=== PATIENT | female | born 1965 | race Caucasian/White ===

== ENCOUNTER 2018-05-15 09:54 | Emergency (ER) | payer OTHER ==
[~2018-05-15] VITALS: Ht 170.2 cm; Wt 70.3 kg
[2018-05-15 10:16] LABS: ABSOLUTE BASOPHILS 0.1 thou/uL (0.0-0.2); ABSOLUTE EOSINOPHILS 0.1 thou/uL (0.0-0.7); ABSOLUTE LYMPHOCYTES 1.9 thou/uL (0.8-5.3); ABSOLUTE MONOCYTES 0.5 thou/uL (0.0-1.2); ABSOLUTE NEUTROPHILS 3.5 thou/uL (1.6-8.1); BASOPHILS 0.9 %; HEMATOCRIT 40.2 % (37.0-47.0); MCH 27.2 pg (26.0-34.0); MCHC 32.2 g/dL (28.0-37.0); MCV 84.3 fL (80.0-100.0); MONOCYTES 8.2 %; MPV 8.5 fl. (7.2-11.1); NUCLEATED RBCS 0 /100WBC; PLATELET COUNT* 247 thou/uL (150-400); POLYS 58.9 %; RBC 4.77 mil/uL (4.20-5.00); RDW-CV 13.7 % (10.5-14.5)
[2018-05-15 10:25] LABS: ANION GAP 6 mmol/L (7-16); BUN 16 mg/dL (7-18); CALCIUM 8.8 mg/dL (8.5-10.1); CHLORIDE 105 mmol/L (98-107); CO2 29 mmol/L (21-32); CREATININE 0.8 mg/dL (0.6-1.3); GLUCOSE 89 mg/dL (70-99); POTASSIUM 3.7 mmol/L (3.5-5.1); SODIUM 140 mmol/L (136-145)
[2018-05-15 10:28] LABS: APTT 27.8 Seconds (25.0-31.3); PROTIME 10.7 Seconds (9.20-11.50)
[2018-05-15 10:44] LABS: ALBUMIN 3.5 g/dL (3.4-5.0); ALKALINE PHOSPHATASE 87 U/L (46-116); CK-MB MASS 1.4 ng/mL (<0.5-3.6); LIPASE 106 U/L (73-393); NT-PRO BRAIN NAT PEPTIDE 91 pg/mL (<300); SGOT 21 U/L (15-37); SGPT 38 U/L (30-65); TOTAL BILIRUBIN 0.2 mg/dL (<0.1-1.0); TOTAL PROTEIN 7.3 g/dL (6.4-8.2); TROPONIN-I LEVEL <0.06 ng/mL (<0.06)
[2018-05-15 10:55] VITALS: BP 130/66
--- NOTE | 2018-05-16 12:32 | EKG ---
[place] [address] ELECTROCARDIOGRAM REPORT Name: GREGORY MENESES Room: [facility]#: [id number] Admission: 05/15/18 Attend Phys: Discharge: 05/15/18 Date of : 69 Report #: [id number] THIS REPORT FOR: //name// [facility] ED Test Date: 2018-05-15 Test Time: 09:58:11 Pat Name: GREGORY MENESES Department: Room: Gender: F [employer]: : 1965 Requested By: Figueroa Petty Order Number: [id number] MD: Anirudh Rodriguez Measurements Intervals [place] Rate: 59 P: 30 AR: 137 QRS: -30 QRSD: 86 T: 30 QT: 392 QTc: 389 Interpretive Statements Sinus rhythm Left axis deviation Low voltage, precordial leads Abnormal R-wave progression, early transition No previous ECG available for comparison Electronically Signed On 05-16-2018 12:31:58 [employer]FERENCE [employer] INSTRUCTION LIBRARIAN by Anirudh Rodriguez [email or web address] <ELECTRONICALLY SIGNED> By: Anirudh Rodriguez MD, [facility] 05/16/18 [id number] [phone] Anirudh Rodriguez MD, [facility] /EPI
== END 2018-05-15 10:55 | disposition home or self-care (01) ==
LOC: M.ERS 09:54
PROVIDERS: Family Medicine
DX: R07.89 Other chest pain (principal)

== ENCOUNTER → 2019-08-04 | Outpatient (CLI) | payer OTHER | LOC: M.RAD 10:09 | DX: Z12.31 Encounter for screening mammogram for malignant neoplasm of breast (principal); N63.10 Unspecified lump in the right breast, unspecified quadrant; N63.20 Unspecified lump in the left breast, unspecified quadrant ==

== ENCOUNTER → 2019-08-11 | Outpatient (CLI) | payer OTHER | LOC: M.ULTRA 10:12 | DX: N63.11 Unspecified lump in the right breast, upper outer quadrant (principal); N63.21 Unspecified lump in the left breast, upper outer quadrant ==

== ENCOUNTER → 2019-08-14 | Outpatient (CLI) | payer OTHER ==
--- NOTE | 2019-08-17 15:08 | PATH ---
[address] [address] PATHOLOGY RPT PROCEDURE Name: RUKHSANA NOLASCO Room: [facility] Brian#: [id number] Admission: 08/14/19 Date of : 69 Discharge: Report #: [id number] Path Case #: [id number] [facility] Accession Number: [id number] . 01 Material submitted: . breast - RIGHT BREAST MASS, 10:00, 8CMFN. Modifiers: right, 10:00 . 01 Clinical history: . 1.99 x 1.21 x 1.32 cm . 01 Frozen section diagnosis: . . /QMS . 02 Diagnosis: Right breast mass, 10:00, 8 cm from nipple, image-guided core biopsy: - Fibroadenoma and benign breast tissue, negative for atypia. See comment. . (FIDELIA:viviane; 08/17/2019) QMS 08/17/2019 0930 Local . 02 Comment: Reviewed with Dr. Andrei Franklin, who agrees with the diagnosis. (FIDELIA:[facility]; 08/17/2019) . 02 Electronically signed: . Indio Galeas MD, Pathologist NPI- [id number] . 01 Gross description: . The specimen is received in formalin, labeled "Rukhsana Nolasco, right breast biopsy 10:00 8 cm from nipple". Received are multiple needle cores of fibrofatty tissue measuring 1.4 x 1.0 x 0.2 cm in aggregate dimensions. The specimen is submitted entirely in cassettes A1 through A3. The cold ischemic time is less than 1 minute. The total formalin fixation time is 13 hours and 27 minutes. ([facility]; 08/14/2019) QAC/QAC 08/17/2019 0930 Local . 02 Microscopic: . . . 02 Pathologist provided ICD-10: D24.1 . 02 CPT . 342243 [place] [address] PATHOLOGY RPT PROCEDURE Name: RUKHSANA NOLASCO Room: [facility]#: [id number] Admission: 08/14/19 Date of : 69 Discharge: Report #: [id number] Path Case #: [id number] Specimen Comment: A courtesy copy of this report has been sent to [phone] Specimen Comment: Report sent to DR GROSSMAN / DR KNOWLES Performed at: 01 [facility] [address], [place], [place] [id number] MD Jose Voss MD Phone: [phone] Performed at: 02 [facility] [address], [place], [place] [id number] MD Indio Galeas MD Phone: [phone]
== END | disposition home or self-care (01) ==
LOC: M.ULTRA 08:30
DX: D24.1 Benign neoplasm of right breast (principal)

== ENCOUNTER → 2019-08-25 | Outpatient (CLI) | payer OTHER ==
--- NOTE | 2019-08-27 10:07 | PATH ---
[address] [address] PATHOLOGY RPT PROCEDURE Name: RUKHSANA NOLASCO Room: [facility] Torres#: [id number] Admission: 08/25/19 Date of : 69 Discharge: Report #: [id number] Path Case #: [id number] [facility] Accession Number: [id number] . 01 Material submitted: . breast - RIGHT BREAST BX 10:00 8CMFN. Modifiers: right, 10:00 . 01 Clinical history: . 1.36 x 1.64 x 1.11 cm . 02 Diagnosis: Right breast, 10:00, 8 cm from nipple, image guided core biopsies: - Fibroadenoma with prominent calcifications adjacent to benign breast tissue showing prior biopsy site and chronic inflammation, negative for atypia. See comment. LBQ 08/26/2019 1527 Local . 02 Comment: Reviewed with Dr. Brit Franklin who agrees with the diagnosis. (FIDELIA/db; 08/26/2019) . 02 Electronically signed: . Indio Galeas MD, Pathologist NPI- [id number] . 01 Gross description: . The specimen is received in formalin, labeled "Rukhsana Nolasco, right breast 10:00 8 cm from nipple". Received are multiple needle cores of fibrofatty tissue measuring 2.8 x 2.4 x 0.5 cm in aggregate dimensions. The specimen is submitted entirely in cassettes A1 through A3. The cold ischemic time is 3 minutes. The total formalin fixation time is 13 hours and 55 minutes. ([facility]; 08/25/2019) QAC/QAC 08/25/2019 1445 Local . 02 Pathologist provided ICD-10: D24.1 . 02 CPT . 395696 Specimen Comment: A courtesy copy of this report has been sent to [phone] Specimen Comment: [phone] Specimen Comment: Report sent to / DR KNOWLES Performed at: [address], [place] [id number] MD Jose Voss MD Phone: [phone] [place] [address] PATHOLOGY RPT PROCEDURE Name: RUKHSANA NOLASCO Room: [facility]#: [id number] Admission: 08/25/19 Date of : 69 Discharge: Report #: [id number] Path Case #: [id number] Performed at: 02 [facility] [address], [place] [id number] MD Indio Galeas MD Phone: [phone]
== END ==
LOC: M.ULTRA 08:27
DX: R92.8 Other abnormal and inconclusive findings on diagnostic imaging of breast (principal)